=== PATIENT | male | born 1950 | race African-American/Black ===

== ENCOUNTER 2022-12-21 12:55 | Emergency (ER) | payer SELFPAY ==
[2022-12-21 13:21] VITALS: BP 150/84
--- NOTE | 2022-12-21 13:32 | ED Physician Documentation ---
PD HPI BACK PAIN - Stated complaint Stated Complaint: LOWER BACK PX - Chief complaint Chief Complaint: General - History obtained from History obtained from: Patient - History of Present Illness Timing - onset: Chronic (has chronic back pain with increase recently due to lifting and carrying with move from [facility] few weeks ago. Out of regular meds as well. Has appt with new PCP less than a month from now.) Timing - details: Still present Location: Lower Quality: Pain, Spasm, Aching Associated symptoms: No: Fever, Weakness, Numbness Worsened by: Movement Contributing factors: Out of meds Review of Systems : denies: Incontinent Neurologic: denies: Focal weakness, Numbness PD PAST MEDICAL HISTORY - Past Medical History Cardiovascular: Hypertension Respiratory: None Neuro: None Endocrine/Autoimmune: Type 2 diabetes Musculoskeletal: Chronic back pain - Present Medications Home Medications: Ambulatory Orders Medication Instructions Recorded Confirmed Meloxicam [Mobic] 7.5 mg PO BID 10 Days #20 tablet 12/21/22 hydroCHLOROthiazide [Hydrodiuril] 12.5 mg PO DAILY 30 Days #30 cap 12/21/22 metFORMIN [Glucophage] 500 mg PO BIDWM 30 Days #60 tablet 12/21/22 methocarbamoL [Robaxin] 500 mg PO Q6H PRN #30 tablet 12/21/22 oxyCODONE [Roxicodone] 5 mg PO TID #25 tablet 12/21/22 - Allergies Allergies/Adverse Reactions: Allergies Allergy/AdvReac Type Severity Reaction Status Date / Time lisinopril Allergy Hives Verified 12/21/22 13:15 PD ED PE NORMAL - Vitals Vital signs reviewed: Yes - General General: Alert and oriented X 3, No acute distress, Well developed/nourished - Derm Derm: Normal color, Warm and dry - Extremities Extremities: No edema, No calf tenderness / cord - Neuro Neuro: Alert and oriented X 3, No motor deficit, No sensory deficit, Normal speech Results - Vitals Vitals: Oxygen O2 Source Room air - Labs Labs: Laboratory Tests 12/21/22 13:42 POC Whole Bld Glucose 129 H PD Medical Decision Making - ED course Complexity details: considered differential (recelntly moved to area and not established with PMD. Has appt in Jan. Is out of a few meds. Oxycodone, metformin and HCTZ. Has increased back pain over baseline with a lot of lifting andd carrying with their move recently. Can add NSIAD and muscle relaxant short term. I can Rx a month for his met ), d/w patient Departure - Departure Disposition: Home, Self Care Clinical Impression: Diabetes, Hypertension, Medication refill Chronic low back pain Qualifiers: Back pain laterality: unspecified Sciatica presence: unspecified whether sciatica present Qualified Code(s): M54.50 - Low back pain, unspecified Condition: Stable Record reviewed to determine appropriate education?: Yes Prescriptions: metFORMIN [Glucophage] 500 mg PO BIDWM 30 Days #60 tablet hydroCHLOROthiazide [Hydrodiuril] 12.5 mg PO DAILY 30 Days #30 cap Meloxicam [Mobic] 7.5 mg PO BID 10 Days #20 tablet methocarbamoL [Robaxin] 500 mg PO Q6H PRN #30 tablet PRN Reason: Spasms oxyCODONE [Roxicodone] 5 mg PO TID #25 tablet Comments: Continue with your usual medications of the metformin and hydrochlorothiazide and any other usual medications. Continue with your oxycodone 5 mg 3 times a day. Add meloxicam anti-inflammatory and Robaxin muscle relaxant for your low back. Follow-up later in December as planned with a new primary care. I sent new prescription to [facility] pharmacy. My narcotic instructions I am prescribing a short course of narcotic pain medication for you. These are potentially dangerous and addictive medications that should be used carefully. These medications may constipate you. Take an ufjx-nhl-xnkzzmf stool softener such as docusate twice daily with plenty of water while taking these medications. If you go 24 hours without a bowel movement, take aydg-dlt-kiukijg MiraLAX, per package instructions. Do not drink or drive while taking these medications. If you received narcotic or sedating medications while in the emergency department do not drive for 24 hours. Store this medication in a safe, secure place and out of reach of children. It is a violation of federal law to give or sell this medication to another person or to use in a manner other than prescribed. The ED will not refill narcotic prescriptions, including prescriptions lost or stolen. You can dispose of unwanted medications at the [facility]'s office or at several pharmacies such as [facility]. Forms: PCP List Discharge Date/Time: 12/21/22 15:50
[2022-12-21] MEDS ORDERED: oxyCODONE 5 MG TABLET PO STA (14:22)
[2022-12-21] MEDS ORDERED: ACETAMINOPHEN 325 MG TABLET PO STA (14:22)
== END 2022-12-21 15:50 | disposition home or self-care (01) ==
LOC: EDBD → ED 12:55
DX: M54.50 Low back pain, unspecified (principal); G89.29 Other chronic pain; I10 Essential (primary) hypertension; E11.9 Type 2 diabetes mellitus without complications; Z79.84 Long term (current) use of oral hypoglycemic drugs; Z76.0 Encounter for issue of repeat prescription
CPT/HCPCS: 99282; 99283; A9270

== ENCOUNTER 2023-11-11 08:00 | Outpatient (CLI) | payer MEDICARE | END 2023-11-11 23:59 | disposition home or self-care (01) | LOC: LAB.N 08:00 | PROVIDERS: ATTEND Physician Assistant Medical | DX: R10.9 Unspecified abdominal pain (principal) | CPT/HCPCS: 87086 ==

== ENCOUNTER 2023-11-14 05:42 | Emergency (ER) | payer MEDICARE, MEDICAID ==
--- NOTE | 2023-11-14 05:45 | ED Physician Documentation ---
PD HPI URI - Stated complaint Stated Complaint: RUNNY NOSE X 4 DAYS - History obtained from History obtained from: Patient - Additional information Additional information: BIBA. HPI from patient. Patient c/o sinus congestion, rhinorrhea, post-nasal drip x 4 days. He says he has difficulty breathing through his nose but otherwise denies shortness of breath per se. Mild, nonproductive cough x 2-3 days. Denies chest pain, fever, sore throat. Review of Systems Constitutional: denies: Fever, Chills, Myalgias, Fatigue, Sweats Cardiac: denies: Chest pain / pressure Respiratory: reports: Cough PD PAST MEDICAL HISTORY - Past Medical History Cardiovascular: Hypertension Respiratory: None Neuro: None Endocrine/Autoimmune: Type 2 diabetes Musculoskeletal: Chronic back pain - Present Medications Home Medications: Ambulatory Orders Medication Instructions Recorded Confirmed Meloxicam [Mobic] 7.5 mg PO BID 10 Days #20 tablet 12/21/22 hydroCHLOROthiazide [Hydrodiuril] 12.5 mg PO DAILY 30 Days #30 cap 12/21/22 metFORMIN [Glucophage] 500 mg PO BIDWM 30 Days #60 tablet 12/21/22 methocarbamoL [Robaxin] 500 mg PO Q6H PRN #30 tablet 12/21/22 oxyCODONE [Roxicodone] 5 mg PO TID #25 tablet 12/21/22 - Allergies Allergies/Adverse Reactions: Allergies Allergy/AdvReac Type Severity Reaction Status Date / Time lisinopril Allergy Hives Verified 11/14/23 05:51 PD ED PE NORMAL - Vitals Vital signs reviewed: Yes - General General: Alert and oriented X 3, No acute distress, Well developed/nourished - HEENT HEENT: Ears normal, Pharynx benign - Neck Neck: Supple, no meningeal sign - Cardiac Cardiac: RRR - Respiratory Respiratory: No respiratory distress, Clear bilaterally Results - Vitals Vitals: Vital Signs - 24 hr 11/14/23 05:47 Temperature 36.7 C Heart Rate 85 Respiratory 18 Rate Blood Pressure 148/98 H O2 Saturation 96 Oxygen O2 Source Room air - Labs Labs: Laboratory Tests 11/14/23 05:55 Nasal Adenovirus (PCR) NOT DETECTED Nasal B. parapertussis DNA (PCR) NOT DETECTED Nasal Coronavir 229E PCR NOT DETECTED Nasal Coronavir HKU1 PCR NOT DETECTED Nasal Coronavir NL63 PCR NOT DETECTED Nasal Coronavir OC43 PCR NOT DETECTED Nasal Enterovir/Rhinovir PCR NOT DETECTED Nasal Influenza B PCR NOT DETECTED Nasal Influenza A PCR NOT DETECTED Nasal Parainfluen 1 PCR NOT DETECTED Nasal Parainfluen 2 PCR NOT DETECTED Nasal Parainfluen 3 PCR DETECTED A Nasal Parainfluen 4 PCR NOT DETECTED Nasal RSV (PCR) NOT DETECTED Nasal B.pertussis DNA PCR NOT DETECTED Nasal C.pneumoniae (PCR) NOT DETECTED [place] Human Metapneumo PCR NOT DETECTED Nasal M.pneumoniae (PCR) NOT DETECTED Nasal SARS-CoV-2 (PCR) NOT DETECTED - Rads (name of study) chest xray Relevant Findings:: Prelim report reviewed, See rad report PD Medical Decision Making - ED course Complexity details: reviewed results, re-evaluated patient, considered differential, d/w patient ED course: NAD and lungs CTA. Afebrile and 98% pulse ox on room air. Patient's description of symptoms are highly s/o uncomplicated sinusitis. Unremarkable CXR. Respiratory PCR panel is positive for parainfluenza 3. Results d/w patient and diagnosis, prognosis, and return precautions are reviewed. Departure - Departure Disposition: 01 Home, Self Care Clinical Impression: Parainfluenza Condition: Good Instructions: ED Sinusitis No Abx Comments: Your chest x-ray was normal; there is no evidence of pneumonia. The nasal swab was positive for parainfluenza; this is a common virus that typically causes upper respiratory symptoms (cough, congestion) but rarely causes serious illness. The symptoms typically last a few days but can take a week or more to r esolve. Forms: PCP List Discharge Date/Time: 11/14/23 07:27
[2023-11-14 05:59] VITALS: BP 148/98; O2SAT 96
[2023-11-14 06:47] LABS: B. PARAPERTUSSIS- RESP PCR PAN NOT DETECTED; B. PERTUSSIS- RESP PCR PANEL NOT DETECTED; C. PNEUMONIAE- RESP PCR PANEL NOT DETECTED; CORONAVIRUS 229E-RESP PCR NOT DETECTED; CORONAVIRUS HKU1-RESP PCR NOT DETECTED; CORONAVIRUS NL63-RESP PCR NOT DETECTED; CORONAVIRUS OC43-RESP PCR NOT DETECTED; HUMAN METAPNEUMOVIRUS NOT DETECTED; INFLUENZA A- RESP PCR PANEL NOT DETECTED; INFLUENZA B - RESP PCR PANEL NOT DETECTED; M. PNEUMONIAE- RESP PCR PANEL NOT DETECTED; PARAINFLUENZA VIRUS 1 NOT DETECTED; PARAINFLUENZA VIRUS 2 NOT DETECTED; PARAINFLUENZA VIRUS 3 DETECTED; PARAINFLUENZA VIRUS 4 NOT DETECTED; RHINOVIRUS/ENTEROVIRUS NOT DETECTED; RSV- RESP PCR PANEL NOT DETECTED; SARS-CoV-2 -RESP PCR PANEL NOT DETECTED
[2023-11-14] MEDS: OXYMETAZOLINE HCL 100 SPRAYS BOTTLE NAS STA (07:27)
--- NOTE | 2023-11-14 07:59 | XRAY Report ---
PROCEDURE: Chest 2V INDICATIONS: cough TECHNIQUE: 2 views of the chest were acquired. COMPARISON: None. FINDINGS: Surgical changes and devices: None. Lungs and pleura: No pleural effusions or pneumothorax. Lungs are clear. Mediastinum: Mediastinal contours appear normal. Heart size is normal. Bones and chest wall: No suspicious bony lesions. Overlying soft tissues appear unremarkable. IMPRESSION: No acute cardiopulmonary process. The above findings are concordant with preliminary report. Reviewed by: Yelitza Schafer MD on 11/14/2023 7:58 AM PDT Approved by: Yelitza Schafer MD on 11/14/2023 7:58 AM PDT Station ID: [id number]
== END 2023-11-14 07:27 | disposition home or self-care (01) ==
LOC: EDUNIT# → ED 05:42
DX: B34.8 Other viral infections of unspecified site (principal)
CPT/HCPCS: 87633; 99283; 99284

== ENCOUNTER 2023-11-20 04:04 | Outpatient (CLI) | payer MEDICARE, MEDICAID | END 2023-11-20 22:33 | disposition critical access hospital (66) | LOC: EMS 04:04 | DX: R13.10 Dysphagia, unspecified (principal); R41.0 Disorientation, unspecified | CPT/HCPCS: A0425; A0429 ==

== ENCOUNTER 2023-11-20 18:03 | Emergency (ER) | payer MEDICARE, MEDICAID ==
[2023-11-20] MEDS: CETIRIZINE 10 MG TABLET PO STA (20:25)
[2023-11-20] MEDS: ALBUTEROL NEB 2.5 MG/3 ML INH STA (20:25)
[2023-11-20] MEDS: HYDROcod/ACETAM 5/325 MG TABLET PO STA (20:27)
--- NOTE | 2023-11-20 21:21 | ED Physician Documentation ---
PD HPI URI - Stated complaint Stated Complaint: AYALA - Chief complaint Chief Complaint: Heent - History obtained from History obtained from: Patient, Family - History of Present Illness Associated symptoms: Nasal congestion, Rhinorrhea, Dry cough, Dyspnea (States feels slightly hard to breathe when laying down.). No: Fever, Chills, Chest pain - Additional information Additional information: Patient is a 73-year-old male who was recently diagnosed with parainfluenza. He states he has had increased nasal congestion and coughing. Feels like he is having trouble sleeping secondary to nasal congestion. No fevers. No chills. He has not taken any decongestants. He states he saw his doctor today who placed him on antibiotics for unclear reasons. Review of Systems Constitutional: denies: Fever, Chills GI: denies: Vomiting, Diarrhea Skin: denies: Rash PD PAST MEDICAL HISTORY - Past Medical History Past Medical History: Yes Cardiovascular: Hypertension Respiratory: None Neuro: None Endocrine/Autoimmune: Type 2 diabetes GI: None : None HEENT: None Psych: None Musculoskeletal: Chronic back pain Derm: None - Past Surgical History Past Surgical History: No - Present Medications Home Medications: Ambulatory Orders Medication Instructions Recorded Confirmed hydroCHLOROthiazide [Hydrodiuril] 12.5 mg PO DAILY 30 Days #30 cap 12/21/22 11/21/23 metFORMIN [Glucophage] 500 mg PO BIDWM 30 Days #60 tablet 12/21/22 11/21/23 Albuterol Sulf [Ventolin Hfa 1 - 2 puffs INH Q4HR PRN #1 each 11/20/23 Inhaler] Amlodipine Besylate [Norvasc] 10 mg PO DAILY 11/20/23 11/21/23 Amox/Clav 500/125 [Augmentin 1 tablet PO Q12H 11/20/23 11/21/23 500/125] Buspirone HCl 7.5 mg PO DAILY 11/20/23 11/21/23 Cetirizine [ZyrTEC] 10 mg PO DAILY PRN #20 tablet 11/20/23 Docusate Sodium [Dok] 100 mg PO DAILY 11/20/23 11/21/23 Fexofenadine HCl 180 mg PO DAILY 11/20/23 11/21/23 Fluorometholone [Fml] 1 drops OP DAILY 11/20/23 11/21/23 Fluticasone [Flonase] 2 spray SULTANA DAILY 11/20/23 11/21/23 HYDROcod/ACETAM 5/325 [[place] 5/325] 1 - 2 ea PO Q6H PRN #14 tablet 11/20/23 Omeprazole 20 mg PO DAILY 11/20/23 11/21/23 Tamsulosin [Flomax] 0.4 mg PO DAILY 11/20/23 11/21/23 allopurinoL [Allopurinol] 300 mg PO DAILY 11/20/23 11/21/23 oxyCODONE [Roxicodone] 5 mg PO BID PRN 11/20/23 11/21/23 traZODone [Desyrel] 50 mg PO HS 11/20/23 11/21/23 - Allergies Allergies/Adverse Reactions: Allergies Allergy/AdvReac Type Severity Reaction Status Date / Time gluten Allergy Unknown Verified 11/21/23 06:40 lisinopril Allergy Hives Verified 11/21/23 06:40 - Social History Does the pt smoke?: No Smoking Status: Never smoker Does the pt drink ETOH?: No Does the pt have substance abuse?: No - Immunizations Immunizations are current?: No - POLST Patient has POLST: No PD ED PE NORMAL - Vitals Vital signs reviewed: Yes - General General: Alert and oriented X 3, No acute distress - HEENT HEENT: PERRL, Ears normal, Moist mucous membranes, Pharynx benign - Neck Neck: Supple, no meningeal sign - Cardiac Cardiac: RRR, Strong equal pulses - Respiratory Respiratory: No respiratory distress, Clear bilaterally - Abdomen Abdomen: Soft, Non tender, Non distended - Derm Derm: Warm and dry - Neuro Neuro: Alert and oriented X 3 - Psych Psych: Normal mood, Normal affect Results - Vitals Vitals: Oxygen O2 Source Room air PD Medical Decision Making - ED course Complexity details: reviewed old records, considered differential, d/w patient, d/w family ED course: Patient with rhinorrhea, cough and congestion. Recent diagnosis of parainfluenza. He was given albuterol treatment as well as Zyrtec and Vicodin. His cough improved. He is sleeping in the emergency department. Feels better with his breathing. Request to go home at this time. Will prescribe an inhaler for home. Will prescribe a short course of Vicodin to help with the cough. Will also prescribe Zyrtec for congestion. Patient is well-appearing, nontoxic. Afebrile. No hypoxia. No respiratory distress. Patient counseled regarding signs and symptoms for which I believe and urgent re-evaluation would be necessary. Patient with good understanding of and agreement to plan and is comfortable going home at this time This document was made in part using voice recognition software. While efforts are made to proofread this document, sound alike and grammatical errors may occur. Departure - Departure Disposition: 01 Home, Self Care Clinical Impression: Parainfluenza Condition: Good Instructions: ED Viral Syndrome Follow-Up: your,doctor as needed [Other] Prescriptions: Albuterol Sulf [Ventolin Hfa Inhaler] 1 - 2 puffs INH Q4HR PRN #1 each PRN Reason: Shortness Of Air/Wheezing HYDROcod/ACETAM 5/325 [[place] 5/325] 1 - 2 ea PO Q6H PRN #14 tablet PRN Reason: Pain Cetirizine [ZyrTEC] 10 mg PO DAILY PRN #20 tablet PRN Reason: nasal congestion Comments: [facility] [place]. Please use the medications as prescribed. Please follow-up with your doctor for further care. Please return if you worsen. I am prescribing a short course of narcotic pain medication for you. These are potentially dangerous and addictive medications that should be used carefully. These medications may constipate you. Take an dagp-ocp-otquqkf stool softener (docusate) twice daily with plenty of water while taking these medications. If you go 24 hours without a bowel movement, take quuw-lvm-bobdajx miralax, per package instructions. Do not drink or drive while taking these medications. If you received narcotic or sedating medications while in the emergency department, do not drive for 24 hours. Store this medication in a safe, secure place and out of reach of children. It is a violation of federal law to give or sell this medication to another person or to use in a manner other than prescribed. The ED will not refill narcotic prescriptions, including prescriptions lost or stolen. To dispose of unwanted medications: 1. [facility] [address] in [place] has a medication drop box. They accept prescription medications (in pill form) Saturday through Saturday 9:00 a.m. to 5:00 p.m. 2. The [facility] [employer] accepts prescription medications (in pill form only) for disposal year round. Call for more information. 3. Contact the [facility] for the next [facility] sponsored prescription drug collection event. , [phone], or [phone]; Forms: PCP List Discharge Date/Time: 11/20/23 21:31
[2023-11-20 21:24] VITALS: BP 166/89; O2SAT 98
== END 2023-11-20 21:31 | disposition home or self-care (01) ==
LOC: ED 18:03
DX: J06.9 Acute upper respiratory infection, unspecified (principal); B34.8 Other viral infections of unspecified site; R91.1 Solitary pulmonary nodule
CPT/HCPCS: 36415; 71045; 80053; 83690; 85025; 93005; 94640; 94664; 96360; 99283; 99284; A9270

== ENCOUNTER 2023-11-21 06:21 | Outpatient (CLI) | payer MEDICARE, MEDICAID | END 2023-11-21 06:22 | disposition critical access hospital (66) | LOC: EMS 06:21 | DX: T40.2X2A Poisoning by other opioids, intentional self-harm, initial encounter (principal); S31.119A Laceration without foreign body of abdominal wall, unspecified quadrant without penetration into peritoneal cavity, initial encounter; S61.512A Laceration without foreign body of left wrist, initial encounter; X78.9XXA Intentional self-harm by unspecified sharp object, initial encounter; Y92.099 Unspecified place in other non-institutional residence as the place of occurrence of the external cause | CPT/HCPCS: A0425; A0429 ==

== ENCOUNTER 2023-11-21 06:38 | Inpatient (IN) | payer MEDICARE, MEDICAID ==
[2023-11-21] MEDS ORDERED: iohexoL-300 100 ML VIAL ONE (06:49)
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
[2023-11-21 07:07] LABS: BASOPHILS % (AUTO) 0.4 %; EOSINOPHILS # (AUTO) 0.1 10^3/uL (0.0-0.7); EOSINOPHILS % (AUTO) 1.7 %; HCT - HEMATOCRIT 37.2 % (42.0-52.0); HGB - HEMOGLOBIN 11.9 g/dL (14.0-18.0); LYMPHOCYTES # (AUTO) 1.8 10^3/uL (1.5-3.5); LYMPHOCYTES % (AUTO) 24.6 %; MEAN CORPUSCULAR VOLUME 90.5 fL (80.0-94.0); MEAN PLATELET VOLUME 9.6 fL (7.4-11.4); MONOCYTES # (AUTO) 0.9 10^3/uL (0.0-1.0); MONOCYTES % (AUTO) 12.7 %; NEUTROPHILS # (AUTO) 4.3 10^3/uL (1.5-6.6); PLT - PLATELET COUNT 285 10^3/uL (130-450); RED BLOOD COUNT 4.11 10^6/uL (4.70-6.10); RED CELL DISTRIBUTION WIDTH 13.2 % (12.0-15.0); WHITE BLOOD COUNT 7.2 x10^3/uL (4.8-10.8)
[2023-11-21] MEDS: SODIUM CHLORIDE 0.9% 2,000 ML IV STA (07:07)
[2023-11-21] MEDS: BACITRACIN ZINC OINT 1 PACKET TOP STA ×2 (07:07→10:17)
[2023-11-21 07:08] LABS: ACETAMINOPHEN 0.9 ug/mL; CK- CREATINE KINASE 212 IU/L (30-223); ETOH - ETHANOL < 10.0 mg/dL; LIPASE 15 U/L (11-82); MAGNESIUM 1.6 mg/dL (1.7-2.3)
[2023-11-21] MEDS ORDERED: ceFAZolin 1 GM VIAL ONE (07:08)
[2023-11-21 07:12] LABS: ALBUMIN 3.9 g/dL (3.2-5.5); ALBUMIN/GLOBULIN RATIO 1.1 (1.0-2.2); ALKALINE PHOSPHATASE 71 IU/L (42-121); ALT ALANINE AMINOTRANSFERASE 10 IU/L (10-60); AST ASPARTATE AMINOTRANSFERASE 15 IU/L (10-42); BILIRUBIN,TOTAL 0.5 mg/dL (0.2-1.0); BUN - BLOOD UREA NITROGEN 10 mg/dL (6-20); CALCIUM 9.3 mg/dL (8.5-10.3); CARBON DIOXIDE - CO2 26 mmol/L (21-32); CHLORIDE 99 mmol/L (101-111); CREATININE 1.4 mg/dL (0.6-1.3); GFR - MDRD 60 (>89); GLUCOSE 203 mg/dL (74-104); SODIUM 133 mmol/L (135-145); TOTAL PROTEIN 7.3 g/dL (6.4-8.9)
[2023-11-21 07:13] LABS: SALICYLATE < 1.5 mg/dL
[2023-11-21] MEDS: ceFAZolin 1 GM in SODIUM CHLORIDE 0.9% MINIBAG 100 ML IV STA (07:15)
[2023-11-21] MEDS: TETANUS/DIPHTHERIA/PERTUSSIS 0.5 ML SYRINGE IM ONE (07:15)
[2023-11-21 07:29] LABS: BILIRUBIN,URINE NEGATIVE (NEGATIVE); GLUCOSE, URINE (UA) NEGATIVE (NEGATIVE); KETONES,URINE (UA) NEGATIVE (NEGATIVE); LEUKOCYTE ESTERASE, URINE NEGATIVE (NEGATIVE); NITRITE,URINE NEGATIVE (NEGATIVE); OCCULT BLOOD,URINE SMALL (NEGATIVE); PROTEIN,URINE 100 mg/dL (NEGATIVE); UROBILINOGEN,URINE 0.2 (NORMAL) E.U./dL (NORMAL)
[2023-11-21 07:34] LABS: CLARITY,URINE CLEAR (CLEAR)
[2023-11-21 07:38] LABS: AMPHETAMINE SCREEN,URINE NEGATIVE (NEGATIVE); BENZODIAZEPINES SCREEN, URINE NEGATIVE (NEGATIVE); COCAINE SCREEN URINE NEGATIVE (NEGATIVE); METHADONE SCREEN, URINE NEGATIVE (NEGATIVE); METHAMPHETAMINES SCREEN, URINE NEGATIVE (NEGATIVE); OPIATE SCREEN, URINE POSITIVE (NEGATIVE); OXYCODONE SCREEN, URINE POSITIVE (NEGATIVE); THC CANNABINOID SCREEN, URINE NEGATIVE (NEGATIVE); TRICYCLIC ANTIDEPRESSANT,URINE NEGATIVE (NEGATIVE)
[2023-11-21 07:38] LABS: THYROID STIMULATING HORMONE 3.37 uIU/mL (0.34-5.60)
[2023-11-21 07:39] LABS: BARBITURATE SCREEN,UR NEGATIVE (NEGATIVE); BUPRENORPHINE SCREEN, URINE NEGATIVE (NEGATIVE)
[2023-11-21] MEDS ORDERED: oxyCODONE 5 MG TABLET PO PRN (07:41)
[2023-11-21] MEDS ORDERED: ZOLPIDEM 5 MG TABLET PO PRN (07:41)
[2023-11-21] MEDS ORDERED: SODIUM CHLORIDE FLUSH 0.9% 10 ML SYRINGE IVP PRN (07:41)
[2023-11-21 07:44] LABS: BACTERIA,URINE Few /HPF (None Seen); RBC,URINE 0-5 /HPF (0-5); SQUAMOUS EPITHELIAL CELL,UR NONE SEEN (<= Few); WBC,URINE 0-3 /HPF (0-3)
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
[2023-11-21] MEDS: iohexoL-300 100 ML VIAL IVP ONE (08:51)
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
--- NOTE | 2023-11-21 11:21 | PHARMACY PROGRESS NOTE ---
- Best Possible Medication History Admit Date and Time: 11/21/23 0741 Processed by: Nursing Medications reviewed in ED?: Yes Medication History completed: Yes Patient Interview: Completed (by ED RN) Secondary Source(s): Insurance records As the person ultimately responsible for medication therapy, providers are able to order a medication from an existing home medication list in [facility] via the "Reconcile Routine" prior to Confirmation of that medication by geophysical support specialist. Such practice is discouraged except when the physician, in their clinical judgment, deems that a medical need exists for a medication without regard to previous use.
[2023-11-21] MEDS: SODIUM CHLORIDE FLUSH 0.9% 10 ML SYRINGE IVP SCH (14:20)
[2023-11-22 10:46] LABS: HCT - HEMATOCRIT 41.9 % (42.0-52.0); MEAN CORPUSCULAR VOLUME 93.5 fL (80.0-94.0); MEAN PLATELET VOLUME 8.9 fL (7.4-11.4); RED BLOOD COUNT 4.48 10^6/uL (4.70-6.10); RED CELL DISTRIBUTION WIDTH 13.2 % (12.0-15.0); WHITE BLOOD COUNT 8.6 x10^3/uL (4.8-10.8)
[2023-11-22 10:56] LABS: PARTIAL THROMBOPLASTIN TIME 27.7 secs (24.9-33.3)
[2023-11-22 11:00] LABS: ALBUMIN 4.1 g/dL (3.2-5.5); ALBUMIN/GLOBULIN RATIO 1.1 (1.0-2.2); BILIRUBIN,TOTAL 0.5 mg/dL (0.2-1.0); CALCIUM 9.8 mg/dL (8.5-10.3); CREATININE 1.5 mg/dL (0.6-1.3); INR 1.1 (0.8-1.2); MAGNESIUM 1.6 mg/dL (1.7-2.3); PHOSPHORUS 2.5 mg/dL (2.5-5.0); POTASSIUM 3.6 mmol/L (3.5-4.5); TOTAL PROTEIN 7.8 g/dL (6.4-8.9)
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
[2023-11-22] MEDS: SODIUM CHLORIDE 0.9% 500 ML IV ONE (12:45)
[2023-11-22] MEDS: VALPROATE 250 MG/5 ML SOLUTION UDC PO SCH (13:20)
[2023-11-22] MEDS: FLUoxetine 10 MG CAPSULE PO SCH (15:54)
--- NOTE | 2023-11-22 16:06 | PROVIDER PROGRESS NOTE ---
Subjective - Subjective Pt reports feeling: Improved (alert and currently reading. appears well) Objective - Vital Signs/Intake & Output Reviewed Vital Signs: Yes Vital Signs: Vital Signs x48h Temp Pulse Resp BP Pulse Ox 11/22/23 12:00 37.1 C 102 H 18 144/102 H 97 Intake & Output: Intake & Output 11/19/23 11/20/23 11/21/23 11/22/23 23:59 23:59 23:59 23:59 Intake Total 460 Output Total 150 Balance 310 - Objective General Appearance: positive: No acute distress, Alert Eyes Bilateral: positive: PERRL, EOMI Neck: positive: No JVD, Trachea midline Abdomen: positive: No distention Neurologic/Psychiatric: positive: Oriented x3 - Lab Results Fish Bones: 11/22/23 10:41 11/22/23 10:41 Other Labs: Lab Results x24hrs 11/22/23 11/22/23 11/22/23 Range/Units 10:41 10:41 10:41 WBC 8.6 (4.8-10.8) x10^3/uL RBC 4.48 L (4.70-6.10) 10^6/uL Hgb 13.0 L (14.0-18.0) g/dL Hct 41.9 L (42.0-52.0) % MCV 93.5 (80.0-94.0) fL MCH 29.0 (27.0-31.0) pg MCHC 31.0 L (32.0-36.0) g/dL RDW 13.2 (12.0-15.0) % Plt Count 294 (130-450) 10^3/uL MPV 8.9 (7.4-11.4) fL PT (9.9-12.6) secs INR (0.8-1.2) APTT (24.9-33.3) secs Sodium 135 (135-145) mmol/L Potassium 3.6 (3.5-4.5) mmol/L Chloride 97 L (101-111) mmol/L Carbon Dioxide 29 (21-32) mmol/L Anion Gap 9.0 (6-13) BUN 14 (6-20) mg/dL Creatinine 1.5 H (0.6-1.3) mg/dL Estimated GFR (MDRD) 55 L (>89) Glucose 198 H (74-104) mg/dL Calcium 9.8 (8.5-10.3) mg/dL Phosphorus 2.5 (2.5-5.0) mg/dL Magnesium 1.6 L (1.7-2.3) mg/dL Total Bilirubin 0.5 (0.2-1.0) mg/dL AST 16 (10-42) IU/L ALT 12 (10-60) IU/L Alkaline Phosphatase 75 (42-121) IU/L Total Protein 7.8 (6.4-8.9) g/dL Albumin 4.1 (3.2-5.5) g/dL Globulin 3.7 (2.1-4.2) g/dL Albumin/Globulin Ratio 1.1 (1.0-2.2) Acetaminophen 0.1 ug/mL 11/22/23 Range/Units 10:41 WBC (4.8-10.8) x10^3/uL RBC (4.70-6.10) 10^6/uL Hgb (14.0-18.0) g/dL Hct (42.0-52.0) % MCV (80.0-94.0) fL MCH (27.0-31.0) pg MCHC (32.0-36.0) g/dL RDW (12.0-15.0) % Plt Count (130-450) 10^3/uL MPV (7.4-11.4) fL PT 12.0 (9.9-12.6) secs INR 1.1 (0.8-1.2) APTT 27.7 (24.9-33.3) secs Sodium (135-145) mmol/L Potassium (3.5-4.5) mmol/L Chloride (101-111) mmol/L Carbon Dioxide (21-32) mmol/L Anion Gap (6-13) BUN (6-20) mg/dL Creatinine (0.6-1.3) mg/dL Estimated GFR (MDRD) (>89) Glucose (74-104) mg/dL Calcium (8.5-10.3) mg/dL Phosphorus (2.5-5.0) mg/dL Magnesium (1.7-2.3) mg/dL Total Bilirubin (0.2-1.0) mg/dL AST (10-42) IU/L ALT (10-60) IU/L Alkaline Phosphatase (42-121) IU/L Total Protein (6.4-8.9) g/dL Albumin (3.2-5.5) g/dL Globulin (2.1-4.2) g/dL Albumin/Globulin Ratio (1.0-2.2) Acetaminophen ug/mL Assessment/Plan - Problem List (1) Penetrating wound of abdomen Impression: superficial cut to abdomen and left wrist. sutures were not necessary. he is ok for transfer from surgical stand pt. ok to get lacerations wet in the shower. recommend telfa followed by dry gauze and paper tape or kerlex daily for about a week.
[2023-11-22] MEDS: ACETAMINOPHEN 325 MG TABLET PO PRN (17:34)
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
[2023-11-22] MEDS ORDERED: NON FORMULARY MED (Albuterol Sulf [Ventolin Hfa Inhaler] 200 PUFFS/18 GM Inhaler) INH PRN (18:05)
[2023-11-22] MEDS ORDERED: ALBUTEROL NEB 2.5 MG/3 ML INH PRN (18:20)
[2023-11-22 20:04] VITALS: BP 127/92; O2SAT 97
[2023-11-23] MEDS ORDERED: PANTOPRAZOLE 40 MG TABLET PO SCH (07:00)
[2023-11-23] MEDS ORDERED: metFORMIN 500 MG TABLET PO SCH (08:00)
[2023-11-23] MEDS ORDERED: amLODIPine 5 MG TABLET PO SCH (09:00)
[2023-11-23] MEDS ORDERED: NON FORMULARY MED (Allopurinol [Allopurinol] 300 MG Tablet) PO SCH (09:00)
[2023-11-23] MEDS ORDERED: allopurinoL 100 MG TABLET PO SCH (09:00)
[2023-11-23] MEDS ORDERED: TAMSULOSIN 0.4 MG CAPSULE PO SCH (09:00)
[2023-11-23] MEDS ORDERED: FLUTICASONE NASAL SPRAY NAS SCH (09:00)
[2023-11-23] MEDS ORDERED: NON FORMULARY MED (Omeprazole [Omeprazole] 20 MG Tablet.Dr) PO SCH (09:00)
[2023-11-23] MEDS ORDERED: FLUOROMETHOLONE EACHEYE SCH (09:00)
[2023-11-23] MEDS ORDERED: OLANZapine ODT 5 MG TABLET TL SCH (21:00)
[2023-11-23] MEDS ORDERED: NON FORMULARY MED (Amlodipine Besylate [Norvasc] 10 MG Tablet) PO SCH (21:00)
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
== END 2023-11-22 19:00 | DRG 605 ==
LOC: ED 06:38 → MS2 07:41 → OBSVTOIN 11-22 10:37
PROVIDERS: ADMIT Surgery; ATTEND Internal Medicine
DX: S31.139A Puncture wound of abdominal wall without foreign body, unspecified quadrant without penetration into peritoneal cavity, initial encounter (principal); R45.851 Suicidal ideations; F32.3 Major depressive disorder, single episode, severe with psychotic features; S61.512A Laceration without foreign body of left wrist, initial encounter; X78.1XXA Intentional self-harm by knife, initial encounter; I10 Essential (primary) hypertension; M10.9 Gout, unspecified; J30.9 Allergic rhinitis, unspecified; E11.9 Type 2 diabetes mellitus without complications; Z79.84 Long term (current) use of oral hypoglycemic drugs; K21.9 Gastro-esophageal reflux disease without esophagitis; M54.9 Dorsalgia, unspecified; N40.0 Benign prostatic hyperplasia without lower urinary tract symptoms; G89.29 Other chronic pain; T39.1X2A Poisoning by 4-Aminophenol derivatives, intentional self-harm, initial encounter; H57.89 Other specified disorders of eye and adnexa
CPT/HCPCS: 36415; 71260; 74177; 80053; 80143; 80306; 81001; 82550; 83690; 83735; 84100; 84443; 85025; 85027; 85610; 85730; 87635; 90471; 90715; 93005; 96365; 99285; A9270; G0378; G0480; J3490; Q9967; 80179; 81003; 82077; 87086